=== PATIENT | female | born 1955 | race Caucasian/White ===

== ENCOUNTER 2017-11-22 07:45 | Day surgery (SDC) | payer OTHER ==
[2017-11-21 13:45] VITALS: BMI 23.3
[2017-11-22 08:34] VITALS: TEMP 97.1
--- NOTE | 2017-11-22 09:37 | CP.SDSHP ---
Same Day Surgery H & P - History Proposed Procedure: COLONSCOPY Pre-Op Diagnosis: SEE NOTES - Previous Medical/Surgical History Neuro: Backaches Misc: Other Pain: 2.Mild Pain - Allergies Allergies: Allergies kiwi Allergy (Severe, Verified 11/22/17 08:18) ANGIOEDEMA THROAT SWELLING - Physical Exam General Appearance: N Vital Signs: Vital Signs 11/22/17 08:26 Temperature 97.1 F L Pulse Rate 79 Respiratory 19 Rate Blood Pressure 83/71 L O2 Sat by Pulse 98 Oximetry Mental Status: Alert & Oriented x3 Neuro: WNL Heart: WNL Lungs: WNL GI: Other - {Optional Preform as Required} Breast: WNL Abdomen: Other Rectal: Other Integument: WNL : WNL Ortho: Other ENT: WNL - Impression Pt. Evaluated Today:Candidate for Anesthesia & Procedure: Yes - Date & Time Time: 09:36 Short Stay Discharge - Short Stay Discharge Admitting Diagnosis/Reason for Visit: COLON POLYP (HISTORY) Disposition: HOME/ ROUTINE
[2017-11-22] MEDS ORDERED: Lidocaine Hydrochloride 5 ML INJ ONE (09:42)
[2017-11-22] MEDS ORDERED: Propofol 10 mg/ml Inj (20 ML) ONE (09:42)
[2017-11-22] MEDS ORDERED: ePHEDrine 50 mg/ml Inj ONE (09:43)
[2017-11-22 10:27] VITALS: O2SAT 100
[2017-11-22] MEDS ORDERED: Belladonna-Phenobarbital PO ONE (10:30)
[2017-11-22 10:38] VITALS: BP 117/60; PULSE 80; RESP 17
== END 2017-11-22 11:20 | disposition home or self-care (01) ==
LOC: C.ENDO 07:45
PROVIDERS: ATTEND Specialist
DX: Z12.11 Encounter for screening for malignant neoplasm of colon (principal); Z86.010 Personal history of colon polyps; K64.8 Other hemorrhoids; K58.9 Irritable bowel syndrome, unspecified
CPT/HCPCS: 45380; 88305; J2704